=== PATIENT | female | born 1955 | race African-American/Black ===

== ENCOUNTER → 2016-06-21 | Outpatient (CLI) | payer BC ==
[~2016-06-21] MED LIST: ATORVASTATIN CA20 MG PO; CARAFATE 1 GM TA1 G1 PO; CELEXA20 MG PO; CLARITIN10 MG PO; FISH OIL 1,001000 M2 PO; FLEXERIL PO; FLONASE 0.05%50 MCG NASAL; HYDROCHLOROTHIA25 M2 PO; NEXIUM40 MG PO; ONDANSETRON HCL4 M2 PO; PROTONIX40 M1 PO; TENORMIN50 MG PO
== END ==
LOC: RAD 15:30
DX: M17.11 Unilateral primary osteoarthritis, right knee (principal); M71.561 Other bursitis, not elsewhere classified, right knee; M25.461 Effusion, right knee; M25.561 Pain in right knee

== ENCOUNTER 2016-08-13 18:29 | Emergency (ER) | payer BC ==
[~2016-08-13] VITALS: Ht 162.6 cm; Wt 70.8 kg
--- NOTE | ~2016-08-13 | EKG ---
[address] [address] ELECTROCARDIOGRAM REPORT Name: JOSE L CASTANEDA [facility] [id number] Admission: 08/13/16 Attend Phys: Discharge: 08/13/16 Date of : 59 Report #: [id number] THIS REPORT FOR: //name// [facility] ED Test Date: 2016-08-13 Test Time: 18:59:38 Pat Name: JOSE L CASTANEDA Department: Room: Gender: F Director Of Clinical Education: gerry : 1955 Requested By: Mimi Barone Order Number: [id number] MD: Nathan Granger Measurements Intervals [place] Rate: 65 P: 17 ND: 159 QRS: 42 QRSD: 102 T: 59 QT: 409 QTc: 426 Interpretive Statements Sinus rhythm Baseline wander in lead(s) V1 No previous ECG available for comparison Electronically Signed On 08-16-2016 8:30:29 CDT by Nathan Granger [email or web address] <ELECTRONICALLY SIGNED> By: Nathan Granger MD 08/16/16 0830 1859 1859 Nathan Granger MD /LISA
[2016-08-13 18:50] LABS: URINE BILIRUBIN NEGATIVE (Negative); URINE BLOOD 1+ (Negative); URINE COLOR YELLOW; URINE GLUCOSE-RANDOM* NEGATIVE (Negative); URINE KETONES TRACE (Negative); URINE NITRITE NEGATIVE (Negative); URINE PROTEIN (DIPSTICK) NEGATIVE (Negative); URINE SPECIFIC GRAVITY >= 1.030 (1.003-1.035); URINE UROBILINOGEN 0.2 E.U./dl (0.2-1.0)
[2016-08-13 18:58] LABS: CASTS None Seen /LPF (None Seen); CRYSTALS None Seen /LPF (None Seen); SQUAMOUS 4-10 Moderate /LPF (0-3); URINE RBC 3-10 Few /HPF (0-2)
[2016-08-13 18:59] LABS: BACTERIA 1-9 Few /HPF (None Seen); URINE WBC 0-5 Rare /HPF (0-5)
[2016-08-13 19:03] LABS: ABSOLUTE NEUTROPHILS 4.1 thou/uL (1.4-8.2); BASOPHILS 0.7 % (0.0-2.0); EOSINOPHILS 0.9 % (0.0-3.0); HEMOGLOBIN 12.3 gm/dL (12.0-15.0); LYMPHOCYTES 18.3 % (24.0-44.0); MCH 32.7 pg (26.0-34.0); MCHC 34.2 g/dL (28.0-37.0); MCV 95.7 fL (80.0-100.0); MONOCYTES 4.9 % (1.0-8.0); PLATELET COUNT 225 thou/uL (150-400); POLYS 75.2 % (36.0-66.0); RBC 3.76 mil/uL (4.20-5.00); RDW 14.5 % (10.5-14.5); WBC 5.5 thou/uL (4.0-11.0)
[2016-08-13 19:04] LABS: MANUAL DIFF NO
[2016-08-13 19:12] LABS: ANION GAP 6 mmol/L (7-16); BUN 14 mg/dL (7-18); CALCIUM 9.3 mg/dL (8.5-10.1); CHLORIDE 103 mmol/L (98-107); CO2 27 mmol/L (21-32); GLUCOSE 106 mg/dL (74-106); POTASSIUM 3.6 mmol/L (3.5-5.1); SODIUM 136 mmol/L (136-145)
[2016-08-13 19:19] LABS: ALBUMIN 3.7 g/dL (3.4-5.0); ALKALINE PHOSPHATASE 78 U/L (46-116); SGOT 20 U/L (15-37); SGPT 22 U/L (30-65); TOTAL BILIRUBIN 0.4 mg/dL (<0.1-1.0); TOTAL PROTEIN 7.9 g/dL (6.4-8.2); TROPONIN-I < 0.04 ng/mL (<0.04-0.07)
[2016-08-13] MEDS ORDERED: MYRBETRIQ25 MG PO (19:36)
[2016-08-13] MEDS ORDERED: MIRALAX17 GM PO (20:54)
[2016-08-13] MEDS ORDERED: ONDANSETRON HCL4 M2 PO (20:54)
[2016-08-13 21:04] VITALS: BP 152/78
== END 2016-08-13 21:12 | disposition home or self-care (01) ==
LOC: ER 18:29
PROVIDERS: Nurse Practitioner Family
DX: K29.70 Gastritis, unspecified, without bleeding (principal); K44.9 Diaphragmatic hernia without obstruction or gangrene; I10 Essential (primary) hypertension; F17.210 Nicotine dependence, cigarettes, uncomplicated; K21.9 Gastro-esophageal reflux disease without esophagitis; Z90.710 Acquired absence of both cervix and uterus; Z88.5 Allergy status to narcotic agent; Z88.2 Allergy status to sulfonamides

== ENCOUNTER 2016-09-09 11:07 | Emergency (ER) | payer BC ==
[~2016-09-09] VITALS: Ht 162.6 cm; Wt 69.8 kg
[~2016-09-09 11:07] MED LIST changes: +MIRALAX17 GM PO; +MYRBETRIQ25 MG PO
[2016-09-09 13:48] VITALS: BP 114/61
[2016-09-09] MEDS ORDERED: MAALOX ADVANCE770 ML PO (14:15)
[2016-09-09] MEDS ORDERED: NORCO 5-325 TA1 EACH PO (14:15)
[2016-09-09] MEDS ORDERED: PROTONIX40 MG PO (14:15)
== END 2016-09-09 14:33 | disposition home or self-care (01) ==
LOC: ER 11:07
DX: K44.9 Diaphragmatic hernia without obstruction or gangrene (principal); I10 Essential (primary) hypertension; K21.9 Gastro-esophageal reflux disease without esophagitis; F17.210 Nicotine dependence, cigarettes, uncomplicated; F15.10 Other stimulant abuse, uncomplicated; Z90.711 Acquired absence of uterus with remaining cervical stump; Z88.5 Allergy status to narcotic agent; Z88.2 Allergy status to sulfonamides; Z91.018 Allergy to other foods

== ENCOUNTER 2016-11-28 19:07 | Emergency (ER) | payer BC | END 2016-11-28 22:04 | disposition home or self-care (01) | LOC: ER 19:07 | DX: F41.9 Anxiety disorder, unspecified (principal); K21.9 Gastro-esophageal reflux disease without esophagitis; M43.6 Torticollis; I10 Essential (primary) hypertension; F17.210 Nicotine dependence, cigarettes, uncomplicated; F12.10 Cannabis abuse, uncomplicated; Z90.711 Acquired absence of uterus with remaining cervical stump; Z88.5 Allergy status to narcotic agent; Z88.2 Allergy status to sulfonamides; Z88.8 Allergy status to other drugs, medicaments and biological substances ==

== ENCOUNTER 2017-01-03 11:56 | Emergency (ER) | payer BC ==
[~2017-01-03] VITALS: Ht 165.1 cm; Wt 68.0 kg
[~2017-01-03 11:56] MED LIST changes: +MAALOX ADVANCE770 ML PO; +NAPROSYN500 MG PO; +NORCO 5-325 TA1 EACH PO; +PROTONIX40 MG PO; +ROBAXIN500 MG PO; +TRAMADOL 50 MG50 MG PO
[2017-01-03] MEDS ORDERED: ULTRAM 50MG TAB50 MG PO (14:40)
[2017-01-03] MEDS ORDERED: CLEOCIN HCL300 MG PO (14:40)
[2017-01-03 15:12] VITALS: BP 124/65
== END 2017-01-03 15:15 | disposition home or self-care (01) ==
LOC: ER 11:56
DX: L03.116 Cellulitis of left lower limb (principal); I10 Essential (primary) hypertension; K21.9 Gastro-esophageal reflux disease without esophagitis; Z90.711 Acquired absence of uterus with remaining cervical stump; F17.210 Nicotine dependence, cigarettes, uncomplicated; Z88.2 Allergy status to sulfonamides; Z88.5 Allergy status to narcotic agent; Z91.018 Allergy to other foods

== ENCOUNTER 2017-04-10 17:09 | Emergency (ER) | payer BC ==
[~2017-04-10] VITALS: Ht 162.6 cm; Wt 70.3 kg
--- NOTE | ~2017-04-10 | EKG ---
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
[~2017-04-10 17:09] MED LIST changes: +CLEOCIN HCL300 MG PO; +ULTRAM 50MG TAB50 MG PO
[2017-04-10 17:39] LABS: URINE BLOOD 1+ (Negative); URINE CLARITY CLEAR; URINE COLOR YELLOW; URINE GLUCOSE-RANDOM* NEGATIVE (Negative); URINE KETONES 1+ (Negative); URINE LEUKOCYTES NEGATIVE (Negative); URINE NITRITE NEGATIVE (Negative); URINE PROTEIN (DIPSTICK) 1+ (Negative); URINE SPECIFIC GRAVITY >= 1.030 (1.005-1.035); URINE UROBILINOGEN 0.2 E.U./dl (0.2-1.0)
[2017-04-10 17:43] LABS: ICTOTEST (BILI CONFIRMATORY) Negative (Negative); URINE BILIRUBIN NEGATIVE (Negative)
[2017-04-10 17:44] LABS: ABSOLUTE NEUTROPHILS 4.3 thou/uL (1.4-8.2); BASOPHILS 1.2 % (0.0-2.0); EOSINOPHILS 1.3 % (0.0-3.0); HEMATOCRIT 37.9 % (37.0-47.0); HEMOGLOBIN 12.9 gm/dL (12.0-15.0); LYMPHOCYTES 21.9 % (24.0-44.0); MCH 32.4 pg (26.0-34.0); MCHC 34.1 g/dL (28.0-37.0); MCV 94.9 fL (80.0-100.0); MONOCYTES 5.3 % (1.0-8.0); PLATELET COUNT 257 thou/uL (150-400); POLYS 70.3 % (36.0-66.0); RDW 13.9 % (10.5-14.5); WBC 6.1 thou/uL (4.0-11.0)
[2017-04-10 17:51] LABS: CALCIUM 9.9 mg/dL (8.5-10.1); CREATININE 1.1 mg/dL (0.6-1.0); POTASSIUM 3.6 mmol/L (3.5-5.1)
[2017-04-10 17:57] LABS: ALBUMIN 3.8 g/dL (3.4-5.0); TOTAL BILIRUBIN 0.3 mg/dL (<0.1-1.0); TOTAL PROTEIN 7.9 g/dL (6.4-8.2)
[2017-04-10 18:01] LABS: BACTERIA None Seen /HPF (None Seen); CASTS None Seen /LPF (None Seen); CRYSTALS None Seen /LPF (None Seen); MUCUS 4-6 Moderate strn/LPF (None Seen); SQUAMOUS >10 Many /LPF (0-3); URINE RBC 0-2 Rare /HPF (0-2); URINE WBC 6-15 Few /HPF (0-5)
[2017-04-10] MEDS ORDERED: OMEPRAZOLE20 M1 PO (19:31)
[2017-04-10] MEDS ORDERED: CARAFATE 1 GM TA1 G1 PO (19:31)
== END 2017-04-10 21:00 | disposition home or self-care (01) ==
LOC: ER 17:09
PROVIDERS: Physician Assistant
DX: K29.70 Gastritis, unspecified, without bleeding (principal); I10 Essential (primary) hypertension; K21.9 Gastro-esophageal reflux disease without esophagitis; F17.210 Nicotine dependence, cigarettes, uncomplicated; Z90.711 Acquired absence of uterus with remaining cervical stump; Z88.5 Allergy status to narcotic agent; Z88.2 Allergy status to sulfonamides; Z91.018 Allergy to other foods

== ENCOUNTER → 2018-05-15 | Outpatient (CLI) | payer BC ==
[~2018-05-15] MED LIST changes: +OMEPRAZOLE20 M1 PO
== END ==
LOC: RAD 15:47
DX: Z12.31 Encounter for screening mammogram for malignant neoplasm of breast (principal)

== ENCOUNTER 2018-11-15 10:29 | Emergency (ER) | payer BC ==
[~2018-11-15] VITALS: Ht 162.6 cm; Wt 76.2 kg
[2018-11-15] MEDS ORDERED: TRAMADOL 50 MG50 MG PO (11:32)
[2018-11-15] MEDS ORDERED: PREDNISONE 10 M10 MG PO (11:32)
[2018-11-15] MEDS ORDERED: NORCO 5-325 TA1 EAC1 PO (11:37)
[2018-11-15 11:49] VITALS: BP 176/69
--- NOTE | 2018-11-16 07:27 | EKG ---
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 : 1955 Requested By: Kavita Parks Order Number: [id number] MD: Aurelio Mane Measurements Intervals [place] Rate: 51 P: 18 SC: 174 QRS: 29 QRSD: 112 T: 70 QT: 451 QTc: 416 Interpretive Statements Sinus bradycardia RSR' in V1 or V2, right VCD Baseline wander in lead(s) V2 Compared to ECG 04/10/2017 18:18:22 no significant change was found Electronically Signed On 11-16-2018 7:27:39 CDT by Aurelio Mane [email or web address] <ELECTRONICALLY SIGNED> By: Aurelio Mane MD, [facility] 11/16/18 0727 1102 1102 Aurelio Mane MD, [facility] /EPI
--- NOTE | 2018-11-16 07:28 | EKG ---
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 : 1955 Requested By: Kavita Parks Order Number: [id number] MD: Aurelio Mane Measurements Intervals [place] Rate: 44 P: 36 [place]: 176 QRS: 33 QRSD: 108 T: 64 QT: 458 QTc: 392 Interpretive Statements Sinus bradycardia Abnormal R-wave progression, early transition Compared to ECG 04/10/2017 18:18:22 No significant change was found Electronically Signed On 11-16-2018 7:28:00 CDT by Aurelio Mane [email or web address] <ELECTRONICALLY SIGNED> By: Aurelio Mane MD, [facility] 11/16/18 0728 1124 1124 Aurelio Mane MD, [facility] /EPI
== END 2018-11-15 11:50 | disposition home or self-care (01) ==
LOC: ER 10:29
DX: M77.11 Lateral epicondylitis, right elbow (principal); F17.210 Nicotine dependence, cigarettes, uncomplicated; I10 Essential (primary) hypertension; K21.9 Gastro-esophageal reflux disease without esophagitis; Z88.5 Allergy status to narcotic agent; Z91.018 Allergy to other foods; Z88.2 Allergy status to sulfonamides; Z90.711 Acquired absence of uterus with remaining cervical stump